=== PATIENT | female | born 1945 | race Caucasian/White ===

== ENCOUNTER → 2016-08-24 | Outpatient (CLI) | payer MEDICARE, BC ==
[~2016-08-24] MED LIST: ASPI-611 PO; FISH1CAP29 PO; GLUC1CAP25 PO; MULT-806 PO; SIMV40TA82 PO
== END ==
LOC: WC.BC 15:37
DX: Z12.31 Encounter for screening mammogram for malignant neoplasm of breast (principal)
CPT/HCPCS: 77063; G0202